=== PATIENT | female | born 1985 | race Caucasian/White ===

== ENCOUNTER 2016-12-30 06:00 | Inpatient (IN) | payer BC ==
[2016-12-31] MEDS ORDERED: TERBUTALINE SULFATE 1 MG/ML VIAL IV PRN (07:06)
[2016-12-31] MEDS ORDERED: OLIVE OIL 118 ML BTL MISC PRN (07:06)
[2016-12-31] MEDS ORDERED: LR 1,000 ML IV PRN (07:06)
[2016-12-31] MEDS ORDERED: EPSOM SALT 454 GM TP PRN (07:06)
[2016-12-31] MEDS ORDERED: OXYTOCIN/RINGERS LACTATE 1,000 ML IV PRN (07:06)
[2016-12-31] MEDS ORDERED: LIDOCAINE 1% 300 MG/30 ML SDV ONE (07:32)
[2016-12-31] MEDS ORDERED: OLIVE OIL 118 ML BTL ONE (07:33)
[2016-12-31] MEDS ORDERED: MISOPROSTOL 200 MCG TAB ONE (07:33)
[2016-12-31 07:42] LABS: % IMMATURE GRANULYOCYTES 1.3 % (0.0-1.1); ABSOLUTE IMMATURE GRANULOCYTES 0.13 10^3/uL (0.00-0.10); ADD DIFF? NO; ADD MORPH? NO; ADD SCAN? NO; ATYPICAL LYMPHOCYTE FLAG 0 (0-99); FRAGMENT RBC FLAG 0 (0-99); HEMATOCRIT 36.3 % (38.0-47.0); HEMOGLOBIN 12.6 g/dL (12.6-16.3); LEFT SHIFT FLG 10 (0-99); LIPEMIA HEMOLYSIS FLAG 90 (0-99); MEAN CELL HEMOGLOBIN 30.8 pg (27.9-34.1); MEAN CELL HEMOGLOBIN CONCENTR. 34.7 g/dL (32.4-36.7); MEAN CELL VOLUME 88.8 fL (81.5-99.8); MEAN PLATELET VOLUME 11.8 fL (8.7-11.7); PLATELET CLUMPS FLAG 0 (0-99); PLATELET COUNT 137 10^3/uL (150-400); RED BLOOD CELL COUNT 4.09 10^6/uL (4.18-5.33); RED CELL DISTRIBUTION WIDTH 12.8 % (11.5-15.2)
[2016-12-31] MEDS ORDERED: OXYTOCIN/LR *STANDARD DOSE PROTOCOL IV SCH (08:00)
--- NOTE | 2016-12-31 08:41 | OBPROG ---
OBG Labor Progress Note Assessment/Plan: Assessment: 31 yo @ 40 1/7, admitted for IOL, doing well. Plan: 12/31/16 08:39 FWB reassuring. GBS neg. Epidural planned. Expect . Subjective: 31 yo @ 40 1/7, admitted for IOL, doing well. Objective: 12/31/16 07:11 Patient ABO/Rh O POSITIVE 12/31/16 07:11 vss - SVE Dilation (cm): 4 Effacement (%): 50 Station: -2 - Procedures Non-surgical Procedures: Amniotomy Oxytocin Orders Assessment - Pre-Induction/Augmentation Assessment Gestational Age: 40 week(s) and 1 day(s) Gestational Age Determined By: Last Menstral Period Estimated Weight: 2501-3400g Membrane Status: Ruptured Current Contraction Pattern: Regular - Heart Rate Pattern Reyes FHR Baseline (bpm): 140 FHR Category: 2 FHR Pattern Variability: Moderate FHR Accelerations: Present - Heredia's Score Dilation: 3-4cm Effacement: 40-50 Station: -2 Cervix: Medium Cervix Position: Mid Heredia Score Total: 6 - Induction/Augmentation Consent Risks/Benefits of Procedure Reviewed/Pt Agrees to Proceed: Yes ICD10 Worksheet Patient Problems: Problems Problem Status Onset Elective induction of labor planned Acute
[2016-12-31] MEDS ORDERED: fentaNYL 2MCG/ML/BUP 0.1% RTU 100 ML BAG EP ONE (09:16)
[2016-12-31] MEDS ORDERED: PHENYLEPHRINE HCL 100 MCG/ML SYR ONE (09:17)
[2016-12-31] MEDS ORDERED: BUPIVACAINE 0.25% 30 ML SDV ONE (09:17)
[2016-12-31] MEDS ORDERED: PHENYLEPHRINE HCL 100 MCG/ML SYR IVP PRN (09:43)
[2016-12-31] MEDS ORDERED: ONDANSETRON 4 MG/2 ML VIAL IVP PRN (09:43)
[2016-12-31] MEDS ORDERED: NALOXONE HCL 0.4 MG/ML INJ IVP PRN (09:43)
[2016-12-31] MEDS ORDERED: LR 500 ML IV SCH (10:00)
[2016-12-31] MEDS ORDERED: fentaNYL 2MCG/ML/BUP 0.1% RTU 100 ML EP SCH (10:00)
--- NOTE | 2016-12-31 12:16 | OBPROG ---
OBG Labor Progress Note Assessment/Plan: Assessment: 31 yo @ 40 1/7, admitted for IOL, doing well. Plan: FWB reassuring. GBS neg. Comfortable with epidural. Expect . 12/31/16 12:15 Subjective: 31 yo @ 40 1/7, admitted for IOL, doing well. Objective: 12/31/16 07:11 Patient ABO/Rh O POSITIVE 12/31/16 07:11 - SVE Dilation (cm): 6 Effacement (%): 75 Station: -2 Reyes Current Contraction Pattern: Regular FHR (bpm): 130 FHR Pattern Variability: Moderate FHR Category: 2 Membranes: AROM Amniotic Fluid Color: Clear - Procedures Non-surgical Procedures: Amniotomy, IUPC - Physical Exam Estimated Weight: 2501-3400g Oxytocin Orders Assessment - Pre-Induction/Augmentation Assessment Gestational Age: 40 week(s) and 1 day(s) Estimated Weight: 2501-3400g ICD10 Worksheet Patient Problems: Problems Problem Status Onset Elective induction of labor planned Acute
[2016-12-31] MEDS ORDERED: HYDROCORTISONE 0.5% CREAM TP PRN (14:50)
[2016-12-31] MEDS ORDERED: HYDROCODONE/APAP 5/325 TAB PO PRN (14:50)
[2016-12-31] MEDS ORDERED: SIMETHICONE 80 MG TAB CHEW PO PRN (14:50)
--- NOTE | 2016-12-31 14:53 | OBDEL ---
Info Type: Vaginal GBS+: No Indications for Delivery: Elective, Postterm Favorable Cervix Vaginal Delivery - Labor and Delivery Onset of Contractions Date: 12/31/16 Onset of Contractions Time: 08:00 Onset of Contractions Type: Induced Rupture of Membranes Date: 12/31/16 Rupture of Membranes Time: 08:30 Rupture of Membranes Type: Artificial Amniotic Fluid Color: Clear Dilation Complete Date: 12/31/16 Dilation Complete Time: 14:00 Placenta Delivery Date: 12/31/16 Non-surgical Procedures: Amniotomy, IUPC Laceration: 2nd Degree Repair: 3-0, Vicryl Vaginal Sponge Count Correct: Yes Vaginal Needle Count Correct: Yes Vaginal Sweep Performed: No EBL: 200 ml Delivery Events: None - Medications Labor Augmentation/Induction Methods Used: Pitocin Labor Augmentation/Induction Indication: Post Dates [place] Data Reyes Delivery Date: 12/31/16 ANY: 12/30/16 Gestational Age: 40 week(s) and 1 day(s) Sex of Infant: Female Score (1 Min): 9 Score (5 Min): 9 ICD10 Worksheet Patient Problems: Problems Problem Status Onset Elective induction of labor planned Acute
[2016-12-31] MEDS: IBUPROFEN 600 MG TAB PO PRN ×2 (15:02→20:56)
[2016-12-31 19:04] VITALS: RESP 16
[2016-12-31] MEDS: DOCUSATE SODIUM 100 MG CAP PO PRN (20:41)
[2016-12-31 23:33] VITALS: O2SAT 97
[2017-01-01] MEDS: IBUPROFEN 600 MG TAB PO PRN ×2 (05:40→11:44)
--- NOTE | 2017-01-01 08:58 | OBGCSDC ---
General Delivery Information - General Info : 2 Para: 1 Delivery Physician/CNM: Edilma Roth Admission Date: 12/31/16 Labs: Patient ABO/Rh O POSITIVE 12/31/16 07:11 Hct 36.3 % (38.0-47.0) L 12/31/16 07:11 Vaginal - Diagnosis Labor: Induced Rupture of Membranes Type: Artificial Amniotic Fluid Color: Clear Laceration: 2nd Degree Repair: 3-0, Vicryl Delivery Events: None - Operations/Procedures Non-surgical Procedures: Amniotomy, IUPC L&D Analgesia/Anesthesia Type: Epidural - Hospital Course Antepartum: H/o breast reduction Intrapartum: Uncomplicated IOL, : Routine care, uncomplicated. Home PPD#1 at parents request - Delivery Non-surgical Procedures: Amniotomy, IUPC L&D Analgesia/Anesthesia Type: Epidural Data Reyes Delivery Date: 12/31/16 Delivery Time: 14:34 ANY: 12/30/16 Gestational Age: 40 week(s) and 2 day(s) Sex of : Female Weight (gm): 2952 kg Score (1 Min): 9 Score (5 Min): 9 Discharge Information - Discharge Information Condition: Good Instruction/Follow Up: Six Weeks Discharge Physician/CNM: Tali Ott
[2017-01-01 10:21] VITALS: BP 121/82; PULSE 79; TEMP 98.4
[2017-01-01] MEDS: DOCUSATE SODIUM 100 MG CAP PO PRN (11:44)
== END 2017-01-01 16:30 | disposition home or self-care (01) | DRG 775 ==
LOC: EDSTATUS 12-31 06:00 → FLD 12-31 06:20 → FOB 12-31 17:59
PROVIDERS: ADMIT Midwife; ATTEND Obstetrics & Gynecology
PROC: 10E0XZZ Delivery of Products of Conception, External Approach (ICD-10-PCS; principal; 2016-12-31)
PROC: 4A1J7BZ Monitoring of Products of Conception, Nervous Pressure, Via Natural or Artificial Opening (ICD-10-PCS; principal; 2016-12-31)
PROC: 0KQM0ZZ Repair Perineum Muscle, Open Approach (ICD-10-PCS; principal; 2016-12-31)
PROC: 3E033VJ Introduction of Other Hormone into Peripheral Vein, Percutaneous Approach (ICD-10-PCS; principal; 2016-12-31)
PROC: 10907ZC Drainage of Amniotic Fluid, Therapeutic from Products of Conception, Via Natural or Artificial Opening (ICD-10-PCS; principal; 2016-12-31)
DX: O70.1 Second degree perineal laceration during delivery (principal); O48.0 Post-term pregnancy; Z3A.40 40 weeks gestation of pregnancy; Z37.0 Single live birth
CPT/HCPCS: J2370; J2590

== ENCOUNTER → 2018-04-11 | Outpatient (CLI) | payer BC | LOC: BRMIMAGING 09:27 | PROVIDERS: ATTEND Family Medicine | DX: N63.20 Unspecified lump in the left breast, unspecified quadrant (principal) | CPT/HCPCS: 76641-PO ==